=== PATIENT | male | born 1990 | race Caucasian/White ===

== ENCOUNTER 2017-08-28 09:43 | Emergency (ER) | payer OTHER ==
[~2017-08-28] VITALS: Ht 190.5 cm; Wt 105.8 kg
[~2017-08-28 09:43] MED LIST: LORT5TAB PO; SULF-154 PO; Z.0.NO CURRENT MEDS
[2017-08-28 09:54] VITALS: BP 133/84; PULSE 74; RESP 16; TEMP 98.2; O2SAT 99
[2017-08-28] MEDS ORDERED: BENZ100 PO (10:40)
[2017-08-28] MEDS ORDERED: AZIT250T3 PO (10:40)
--- NOTE | 2017-08-28 10:43 | PD ---
HPI Chief Complaint: Cold / Flu Symptoms Time Seen by Provider: 10:04 Travel History International Travel<30 days: No Contact w/Intl Traveler<30days: No Traveled to known affect area: No History of Present Illness HPI 26-year-old male that presents to the ED for evaluation of cold-like symptoms since . Per patient she's been in contact with his boss who was recently diagnosed with the flu. Per patient his been having nausea or vomiting on the first day as well as diarrhea but then he became more for upper respiratory infection. Per patient he has congestion and cough and mild diarrhea on occasion. No abdominal pain. No chest pain. History of smoking but is trying to quit. Denies any history of asthma or COPD. Cough is productive. Congestion and fevers noted. Per patient he is concerned because symptoms have not improved. Denies any other medical issues. Allergies to penicillin. No pain at this time. No recent travel. Did not get the flu shot this year. PFSH Past Medical History Medical History: Denies Significant Hx Diminished Hearing: No Tetanus Vaccination: < 5 Years Influenza Vaccination: No Past Surgical History Other Surgery: Yes (left foot-ingrown toenail) Social History Alcohol Use: No Tobacco Use: Yes (< 1/4 ppd) Substance Use: Yes (marijuana occass.) Allergies-Medications (Allergen,Severity, Reaction): Coded Allergies: penicillin G (Unverified Allergy, Severe, JIVES, 02/14/17) Reported Meds & Prescriptions Reported Meds & Active Scripts Active Septra Ds (Trimethoprim/Sulfamethoxazole) Tab 1 Tab PO BID Lortab 5/500 (Acetaminophen/Hydrocodone Bitart) 5 Mg/500 Mg Tab 1 Tab PO Q4- 6HPRN FOR PAIN Reported No Current Meds (Miscellaneous Medication) [facility] [place] of Systems Except as stated in HPI: all other systems reviewed are Neg Physical Exam Narrative GENERAL: Well-nourished, well-developed patient in no apparent distress. SKIN: Warm and dry. HEAD: Atraumatic. Normocephalic. EYES: Pupils equal and round reactive to light and accommodation. No scleral icterus. No injection or drainage. ENT: No nasal bleeding or discharge. Mucous membranes pink and moist. TMs are clear with no sign of infection or perforation. No mastoid tenderness. Ear canals are intact bilaterally. No lymphadenopathy. Nostril mucosa is red and moist with clear mucus noted. No sinus tenderness to palpation noted. Tonsils are not enlarged or swollen. No ulvua Deviation. Tongue is midline. NECK: Trachea midline. No JVD. No meningeal signs noted CARDIOVASCULAR: Regular rate and rhythm. RESPIRATORY: No accessory muscle use. Clear to auscultation. Breath sounds equal bilaterally. GASTROINTESTINAL: Abdomen soft, non-tender, nondistended. Hepatic and splenic margins not palpable. MUSCULOSKELETAL: Extremities without clubbing, cyanosis, or edema. No obvious deformities. NEUROLOGICAL: Awake and alert. No obvious cranial nerve deficits. Motor grossly within normal limits. Five out of 5 muscle strength in the arms and legs. Normal speech. PSYCHIATRIC: Appropriate mood and affect; insight and judgment normal. Data Data Last Documented VS Vital Signs Date Time Temp Pulse Resp B/P (MAP) Pulse Ox O2 Delivery O2 Flow Rate FiO2 08/28/17 09:54 98.2 74 16 133/84 (100) 99 Room Air Orders Orders Influenzae A/B Antigen (08/28/17 09:58) MDM Medical Decision Making Medical Screen Exam Complete: Yes Emergency Medical Condition: Yes Medical Record Reviewed: Yes Interpretation(s) Flu test negative Differential Diagnosis Influenza versus pneumonia versus bronchitis versus sinusitis versus viral illness Narrative Course 26-year-old male that presents to the ED for evaluation of cold like symptoms. Patient was properly examined and was found to have signs and symptoms consistent with appears to be likely viral illness.. This was done. Labs and test was negative. Patient was reassured. His and likely still viral we'll treat with azithromycin and Tessalon Perles to cover for bacterial infection. Follow-up with PCP. See ED worsening symptoms. Take OTC medicines as needed. Diagnosis Primary Impression: Acute rhinosinusitis Patient Instructions: General Instructions Additional Instructions: Motrin and Tylenol for pain and fever. You can use [id number] antihistamine as well as well as Mucinex as needed for runny nose and congestion. Cough drops for cough as needed. Drink plenty of fluids. Follow-up with PCP. See ED for worsening symptoms. Med/Other Pt SpecificInfo: Prescription(s) given Scripts Benzonatate (Tessalon Perles) 100 Mg Cap 100 MG PO TID Y for COUGH, #15 CAP 0 Refills Prov: Murtaza Rutledge MD 08/28/17 Azithromycin (Azithromycin) 250 Mg Tab 250 MG PO DIRECTED for Infection, #6 TAB 0 Refills Take 2 tabs (500 mg) on day 1 then 1 tab daily x 4 days. Prov: Murtaza Rutledge MD 08/28/17 Disposition: 01 DISCHARGE HOME Condition: Harris Pan Aug 28, 2017 10:43
== END 2017-08-28 11:26 | disposition home or self-care (01) ==
LOC: PHEFT 09:43
DX: J01.90 Acute sinusitis, unspecified (principal); F12.90 Cannabis use, unspecified, uncomplicated; F17.200 Nicotine dependence, unspecified, uncomplicated
CPT/HCPCS: 87804; 99283